=== PATIENT | male | born 1945 | race American Indian/Alaskan Native ===

== ENCOUNTER 2018-06-06 08:34 | Day surgery (SDC) | payer MEDICARE ==
[2018-05-31 17:53] VITALS: BMI 32.5
--- NOTE | 2018-06-06 10:34 | CP.SDSHP ---
Same Day Surgery H & P - History Proposed Procedure: US guided biopsy of neck mass Pre-Op Diagnosis: neck mass - Allergies Allergies: Allergies No Known Allergies Allergy (Verified 05/31/18 17:53) - Impression Impression: Pt with large left neck mass. Plan US guided biopsy of neck mass. Pt. Evaluated Today:Candidate for Anesthesia & Procedure: No Short Stay Discharge - Short Stay Discharge Admitting Diagnosis/Reason for Visit: DX:NECK MASS Disposition: HOME/ ROUTINE
--- NOTE | 2018-06-06 10:35 | PCM.SURG1 ---
Surgeon's Initial Post Op Note - Surgeon's Notes Surgeon: Mirza Darden MD Manager Of Business Operations: NONE Type of Anesthesia: Local Pre-Operative Diagnosis: neck mass Operative Findings: Large 5 cm left neck mass, complex echotexture. Post-Operative Diagnosis: neck mass Operation Performed: US guided biopsy of neck mass. Four 20 -g core specimen removed. Specimen/Specimens Removed: 20 gauge core x 4 Estimated Blood Loss: EBL {In ML}: 1 Blood Products Given: N/A Drains Used: No Drains Post-Op Condition: Good Date of Surgery/Procedure: 06/06/18 Time of Surgery/Procedure: 10:30
--- NOTE | 2018-06-06 13:06 | US ---
PROCEDURE: Date of procedure: 06/06/2018 Procedure: Ultrasound-guided core biopsy of left neck. Ultrasound guidance for biopsy, [address] Medications: 3 cubic centimeters percent lidocaine HISTORY: Enlarged left neck mass. TECHNIQUE: Following informed consent and procedure time-out, limited ultrasound patient's left neck demonstrates a large mass which is heterogeneous in echotexture measuring over 5 centimeters. After the patient neck was prepped and draped in the usual sterile fashion and the skin anesthetized with lidocaine, ultrasound guided core biopsy was performed. A 20 gauge core biopsy needle was advanced percutaneously into the mass under ultrasound guidance. Upon confirmation of needle position, four 20 gauge core specimens were obtained and sent for routine histology. A post biopsy ultrasound showed no hematoma IMPRESSION: Ultrasound-guided core biopsy of enlarged left neck mass.
== END 2018-06-06 12:00 | disposition home or self-care (01) ==
LOC: C.SPRAD 08:34
PROVIDERS: ATTEND Radiology Vascular & Interventional Radiology
DX: C76.0 Malignant neoplasm of head, face and neck (principal)